=== PATIENT | male | born 1995 | race American Indian/Alaskan Native ===

== ENCOUNTER 2020-09-16 14:07 | Emergency (ER) | payer OTHER ==
[2020-09-16] MEDS ORDERED: ACETAMINOPHEN 500 MG TAB PO ONE (14:32)
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
[2020-09-16 16:10] VITALS: BP 128/73
== END 2020-09-16 16:09 | disposition home or self-care (01) ==
LOC: ED 14:07
DX: S80.01XA Contusion of right knee, initial encounter (principal); M25.461 Effusion, right knee; F12.90 Cannabis use, unspecified, uncomplicated; Z79.899 Other long term (current) drug therapy; V49.49XA Driver injured in collision with other motor vehicles in traffic accident, initial encounter; Y92.410 Unspecified street and highway as the place of occurrence of the external cause; Y93.89 Activity, other specified; Y99.8 Other external cause status